=== PATIENT | female | born 2000 ===

== ENCOUNTER 2018-01-19 04:52 | Emergency (ER) | payer OTHER ==
[2018-01-19 05:51] LABS: Basophils % (Auto) 0.5 % (0.0-1.8); Eosinophils % (Auto) 0.2 % (0.0-4.3); Hematocrit 42.1 % (30.3-42.9); Hemoglobin 14.1 gm/dl (10.1-14.3); Lymphocytes % (Auto) 26.2 % (13.4-35.0); Mean Corpuscular HGB Conc 34 % (30-34); Mean Corpuscular Hemoglobin 29 pg (28-32); Mean Corpuscular Volume 88 fl (79-97); Monocytes # (Auto) 0.9 K/mm3 (0.0-0.8); Monocytes % (Auto) 11.9 % (0.0-7.3); Platelet Count 271 K/mm3 (140-440)
[2018-01-19 06:14] LABS: BUN/Creatinine Ratio 13; Blood Urea Nitrogen 12 mg/dL (7-17); Calcium 9.8 mg/dL (8.4-10.2); Hemolysis Index 6
--- NOTE | 2018-01-19 06:28 | XRay Report ---
FINAL REPORT EXAM: XR CHEST ROUTINE 2V HISTORY: Shortness of breath TECHNIQUE: PA and lateral views of the chest were submitted. FINDINGS: The heart size and vascularity appear normal. The lungs are clear. Pleural fluid is not seen. The bones and soft tissues are well maintained. IMPRESSION: Within normal limits.
--- NOTE | 2018-01-19 10:25 | Emergency Department Report ---
ED Shortness of Breath HPI - General Chief Complaint: Dyspnea/Respdistress Stated Complaint: SOB/RAPID HEART BEAT Time Seen by Provider: 01/19/18 10:11 Source: patient Mode of arrival: Ambulatory Limitations: No Limitations - History of Present Illness Initial Comments: This is a 17-year-old -Citizen Of The [place] female represents with short of breath and palpitations that started around 4 AM this morning. Patient states she left her friend's house around 3 AM and arrived home between 3:30 and 4 AM. She started feeling pressure and heavy feeling to her chest with shortness of breath. Patient states she thought she was about to . She came in for evaluation. Patient admits to past medical history of reactive airway disease. Patient states she used to wear use inhaler when she was in elementary school. Has not had any symptoms since. Patient states she has also had some nausea with symptoms without vomiting. She admits to having sore throat last week and seen at [facility] and given magic mouth wash, which improved symptoms. She also admits to some diaphoresis when symptoms occurred. Patient states she is no longer having symptoms at this time. She denies vomiting, abdominal pain, sore throat, and fever. MD Complaint: shortness of breath, chest pain (pressure or heavy feeling) Onset/Timin -: hour(s) Time: 04:00 Severity: mild Pain Scale: 0 Quality: other (pressure) Consistency: now resolved Worsens With: nothing Known History Of: asthma (reactive airway disease) Context: recent URI Associated Symptoms: palpitations Treatments Prior to Arrival: none - Related Data Home Oxygen Therapy: No Allergies Allergy/AdvReac Type Severity Reaction Status Date / Time No Known Allergies Allergy Unverified 01/19/18 05:07 ED Review of Systems ROS: Stated complaint: SOB/RAPID HEART BEAT Other details as noted in HPI Constitutional: denies: chills, fever Respiratory: shortness of breath. denies: cough, wheezing Cardiovascular: chest pain (pressure). denies: palpitations Gastrointestinal: nausea. denies: abdominal pain, vomiting, diarrhea Neurological: denies: headache, weakness, paresthesias Psychiatric: denies: anxiety, depression ED Past Medical Hx - Past Medical History Previous Medical History?: No - Surgical History Past Surgical History?: No - Social History Smoking Status: Never Smoker Substance Use Type: None ED Physical Exam - General Limitations: No Limitations General appearance: alert, in no apparent distress, obese - Respiratory Respiratory exam: Present: normal lung sounds bilaterally. Absent: respiratory distress - Cardiovascular Cardiovascular Exam: Present: regular rate, normal rhythm. Absent: systolic murmur, diastolic murmur, rubs, gallop - GI/Abdominal GI/Abdominal exam: Present: soft, normal bowel sounds. Absent: organomegaly, mass - Neurological Exam Neurological exam: Present: alert, oriented X3 - Psychiatric Psychiatric exam: Present: normal affect, normal mood - Skin Skin exam: Present: warm, dry, intact, normal color. Absent: rash ED Course Vital Signs 01/19/18 01/19/18 05:05 10:30 Temperature 97.7 F 99.0 F Pulse Rate 125 H 85 Respiratory 17 20 Rate Blood Pressure 130/88 Blood Pressure 131/77 [Right] O2 Sat by Pulse 99 100 Oximetry ED Medical Decision Making - Lab Data Result diagrams: 01/19/18 05:17 01/19/18 05:17 Lab Results 01/19/18 01/19/18 01/19/18 Range/Units 05:17 05:17 05:17 WBC 7.5 (4.5-11.0) K/mm3 RBC 4.80 (3.65-5.03) M/mm3 Hgb 14.1 (10.1-14.3) gm/dl Hct 42.1 (30.3-42.9) % MCV 88 (79-97) fl MCH 29 (28-32) pg MCHC 34 (30-34) % RDW 14.0 (13.2-15.2) % Plt Count 271 (140-440) K/mm3 Lymph % (Auto) 26.2 (13.4-35.0) % [place] % (Auto) 11.9 H (0.0-7.3) % Eos % (Auto) 0.2 (0.0-4.3) % Baso % (Auto) 0.5 (0.0-1.8) % Lymph # 2.0 (1.2-5.4) K/mm3 [place] # 0.9 H (0.0-0.8) K/mm3 Eos # 0.0 (0.0-0.4) K/mm3 Baso # 0.0 (0.0-0.1) K/mm3 Seg Neutrophils % 61.2 (40.0-70.0) % Seg Neutrophils # 4.6 (1.8-7.7) K/mm3 Sodium 140 (137-145) mmol/L Potassium 4.0 (3.6-5.0) mmol/L Chloride 99.9 (98-107) mmol/L Carbon Dioxide 22 (22-30) mmol/L Anion Gap 22 mmol/L BUN 12 (7-17) mg/dL Creatinine 0.9 (0.7-1.2) mg/dL Estimated GFR > 60 ml/min BUN/Creatinine Ratio 13 % Glucose 134 H (65-100) mg/dL Calcium 9.8 (8.4-10.2) mg/dL Troponin T < 0.010 (0.00-0.029) ng/mL HCG, Qual Negative (Negative) - Medical Decision Making This is a 17 y.o. female that presents with shortness of breath and chest pressure since 4:00 this morning. History of reactive airway disease.Patient is stable and was examined by me. Mild tachycardia on arrival. CBC, BMP, troponin , and hCG qualitative obtained and all unremarkable. EKG sinus tachycardia. Physical assessment findings normal. Patient states symptoms have resolved. Reevaluation of vitals within normal limits. Discussed plan with patient and agreed to plan. No further questions noted by the patient. Discharged home in stable condition. Follow up with PCP in 1 week. Critical care attestation.: If time is entered above; I have spent that time in minutes in the direct care of this critically ill patient, excluding procedure time. ED Disposition Clinical Impression: Anxiety, Palpitation, Panic attack Disposition: DC- TO HOME OR SELFCARE Is pt being admited?: No Does the pt Need Aspirin: No Condition: Stable Instructions: Anxiety (ED) Additional Instructions: Follow up with primary care provider in 24-48 hours. Referrals: ANU ACOSTA MD [[facility] Care Provider[facility] [Provider Group] - 3-5 Days Time of Disposition: 10:35 Print Language: PORTUGUESE
[2018-01-19 10:31] VITALS: BP 131/77
== END 2018-01-19 10:59 | disposition home or self-care (01) ==
LOC: ED 04:52
DX: F41.0 Panic disorder [episodic paroxysmal anxiety] (principal); R07.89 Other chest pain; R00.2 Palpitations
CPT/HCPCS: 36415; 71046; 80048; 84484; 84703; 85025; 93005; 93010; 99283